=== PATIENT | female | born 1955 | race Caucasian/White ===

== ENCOUNTER 2019-04-14 15:27 | Outpatient (CLI) | payer MEDICARE, SELFPAY ==
--- NOTE | ~2019-04-14 | MR_ITS ---
EXAMINATION: MR shoulder LT wo con DATE: 04/14/2019 16:45 INDICATION: Left shoulder pain TECHNIQUE: Magnetic resonance imaging (MRI) of the left shoulder was performed without intravenous co ntrast. Sequences included axial PD-weighted FS FSE, coronal oblique PD-weighted FS FSE, coronal obli que T2-weighted FS FSE, sagittal PD-weighted FS FSE, and sagittal T1-weighted SE. COMPARISON: None. FINDINGS: Coracoacromial arch: The acromion undersurface is curved in morphology (type II). Small anterior subacromial spur at the a cromial insertion of the normal coracoacromial ligament. Mild acromioclavicular osteoarthritis. Rotator cuff: Mild tendinopathy of the supraspinatus, infraspinatus and cephalad aspect of the subscapularis tendon s without discrete tear. The teres minor tendon is normal. Normal rotator cuff muscle bulk and signal . Biceps tendon, glenoid labrum and glenohumeral cartilage: Long head of the biceps tendon is normal. Moderate glenohumeral osteoarthritis with deep chondral ulc eration with underlying degenerative subarticular changes along the inferior and posterior glenoid. T here is degenerative tearing along the posterior superior to posterior inferior glenoid labrum. Addit ional partial thickness cartilage loss with chondral surface irregularity and small to moderate-sized marginal osteophytes along the inferomedial aspect of the humeral head. Fluid: Small glenohumeral joint effusion with proportional small amount of fluid in the long head biceps ten don sheath. There is a 2 x 3 mm this osteochondral body within the long head biceps tendon sheath .No intra-articular loose osteochondral bodies. Small amount of fluid in the subacromial/subdeltoid burs a consistent with mild bursitis. Bones: Bone alignment is normal. No fracture or pathologic marrow replacing process. And additionally subart icular cystic change at the glenoid there is additional cystic change underlying the middle facet of the greater tuberosity likely secondary to rotator cuff disease. IMPRESSION: 1. Moderate glenohumeral osteoarthritis with diffuse tearing of the posterior superior to posterior i nferior glenoid labrum. 2. Mild subscapularis, supraspinatus and infraspinatus tendinopathy without discrete tear. 3. Small glenohumeral joint effusion. 4. Mild subacromial/subdeltoid bursitis. Reviewed, dictated and finalized at location A. PSYCHOLOGIST IMPRESSION: 1. Moderate glenohumeral osteoarthritis with diffuse tearing of the posterior s uperior to posterior inferior glenoid labrum. 2. Mild subscapularis, supraspinatus and infraspinatus tendinopathy without dis crete tear. 3. Small glenohumeral joint effusion. 4. Mild subacromial/subdeltoid bursitis.
== END 2019-04-14 15:28 | disposition home or self-care (01) ==
PROVIDERS: PCP Family Medicine; Visit Provider Nurse Practitioner
DX: M25.512 Pain in left shoulder (principal); M19.012 Primary osteoarthritis, left shoulder; S43.432A Superior glenoid labrum lesion of left shoulder, initial encounter; M75.82 Other shoulder lesions, left shoulder; M25.412 Effusion, left shoulder; M75.52 Bursitis of left shoulder
CPT/HCPCS: 73221

== ENCOUNTER 2019-09-26 10:01 | Outpatient (CLI) | payer MEDICARE, SELFPAY ==
--- NOTE | ~2019-09-26 | MM_ITS ---
EXAMINATION: MM screening jarett BI w rylan HISTORY: Screening mammogram TECHNIQUE: Craniocaudal and mediolateral oblique 3-D tomosynthesis images were obtained and synthetic 2-D images were generated. CAD analysis was submitted and interpreted. COMPARISON: 05/17/2017, 03/26/2016, 12/03/2012 bilateral digital screening mammogram examinations BREAST PARENCHYMAL COMPOSITION: The breasts are almost entirely fatty. FINDINGS: There is no evidence of suspicious mass, calcification, or architectural distortion to sugg est malignancy in either breast. There has been no suspicious interval change. IMPRESSION: 1. No mammographic evidence of malignancy. 2. Recommend routine screening mammography in one year. BI-RADS Category 1: Negative Reviewed, dictated and finalized at location A.
== END 2019-09-26 10:02 | disposition home or self-care (01) ==
PROVIDERS: Visit Provider Nurse Practitioner
DX: Z12.31 Encounter for screening mammogram for malignant neoplasm of breast (principal)
CPT/HCPCS: 77063; 77067

== ENCOUNTER 2021-08-29 14:29 | Outpatient (CLI) | payer MEDICARE, SELFPAY ==
--- NOTE | ~2021-08-29 | MM_ITS ---
EXAMINATION: MM screening jarett BI w rylan HISTORY: Screening TECHNIQUE: Craniocaudal and mediolateral oblique 3-D tomosynthesis images were obtained and synthetic 2-D images were generated. CAD analysis was submitted and interpreted. COMPARISON: Comparison to multiple prior studies sequentially, with oldest reviewed study dated 09/18. BREAST PARENCHYMAL COMPOSITION: There are scattered areas of fibroglandular density. FINDINGS: There is no evidence of suspicious mass, calcification, or architectural distortion to sugg est malignancy in either breast. There has been no suspicious interval change. IMPRESSION: 1. No mammographic evidence of malignancy. 2. Recommend routine screening mammography in one year. BI-RADS Category 1: Negative Reviewed, dictated and finalized at location A.
--- NOTE | ~2021-08-29 | DEXA_ITS ---
Bone Density Report Name: OLIVIA MI Age: 66 Sex: Female Ethnicity: White Date of : 1955 Indication: postmenopausal; screening for osteoporosis; height loss; Referring Provider: ALLY, VAISHALI Study: Bone densitometry was performed. Exam Date: August 29, 2021 Accession number: [id number] Bone Density: Region BMD T-score Z-score Classification AP Spine(L1-L4) 1.017 -0.3 1.7 Normal Femoral Neck (Left) 0.762 -0.8 0.9 Normal Total Hip (Left) 1.028 0.7 2.1 Normal Femoral Neck (Right) 0.895 0.4 2.1 Normal Total Hip (Right) 0.958 0.1 1.5 Normal Total Hip Mean 0.993 0.4 1.8 Normal World Health Organization criteria for BMD impression classify patients as: Normal (T-score at or above -1.0), Osteopenia (T-score between -1.0 and -2.5), or Osteoporosis (T-score at or below -2.5). 10-year Fracture Risk: FRAX not reported because: All T-scores for Spine Total, Hip Total, Femoral Neck at or above -1.0 Clinical Information Provided by Patient: Has used the following medications: Vitamin D Patient maximum height was 66 Menopause Age: 37 No regular weight bearing exercise Drinks caffeinated beverages Onset of menses at age 11 Number of children 1 Impression: The patient has normal bone mass. Discussion: BONE DENSITY IS ABOVE THE MINIMUM DESIRABLE LEVEL AT ALL SKELETAL SITES TESTED. This patient?s bone mineral density is above the minimum desirable level (T-score -1.0 or better) at all sites measured. The patient should follow a healthful lifestyle (good nutrition with adequate calcium and vitamin D, and appropriate weight-bearing exercise). Follow-Up: Consider repeating this study in 5 years or sooner if there is some new clinical indication. Reported by: LILIANE on 08/29/2021 3:04:00 PM. Reviewed, dictated and finalized at location AValeria SANON
== END 2021-08-29 14:30 | disposition home or self-care (01) ==
LOC: ANHIMG 14:31
PROVIDERS: PCP Family Medicine; Visit Provider Nurse Practitioner
DX: Z12.31 Encounter for screening mammogram for malignant neoplasm of breast (principal); Z78.0 Asymptomatic menopausal state
CPT/HCPCS: 77063; 77067; 77080

== ENCOUNTER 2022-11-26 14:52 | Outpatient (CLI) | payer MEDICARE, SELFPAY ==
--- NOTE | ~2022-11-26 | MM_ITS ---
EXAMINATION: MM screening jarett BI w rylan HISTORY: Screening mammogram TECHNIQUE: Craniocaudal and mediolateral oblique 3-D tomosynthesis images were obtained and synthetic 2-D images were generated. CAD analysis was submitted and interpreted. COMPARISON: 08/29/2021, 09/26/2019, 05/07/2017 bilateral screening mammogram examinations BREAST PARENCHYMAL COMPOSITION: The breasts are almost entirely fatty. FINDINGS: Stable small focal asymmetry in the posterior upper outer right breast, not significantly c hanged since 05/03/2017, consistent with benign process, likely minimal residual asymmetric fibroglandu lar stroma.. There is no evidence of suspicious mass, calcification, or architectural distortion to s uggest malignancy in either breast. There has been no suspicious interval change. IMPRESSION: 1. No mammographic evidence of malignancy. 2. Recommend routine screening mammography in one year. BI-RADS Category 2: Benign finding(s). Reviewed, dictated and finalized at location A.
== END 2022-11-26 14:53 | disposition home or self-care (01) ==
PROVIDERS: Visit Provider Obstetrics & Gynecology Gynecology
DX: Z12.31 Encounter for screening mammogram for malignant neoplasm of breast (principal)
CPT/HCPCS: 77063; 77067

== ENCOUNTER 2023-12-31 11:58 | Emergency (ER) | payer MEDICARE, SELFPAY ==
[2023-12-31] VITALS (13 sets, daily range): BP systolic 91–129; BP diastolic 62–92; PULSE 61–81; RESP 10–16; TEMP 36.3–36.6; O2SAT 96–99
--- NOTE | ~2023-12-31 | XR_ITS ---
EXAMINATION: XR chest 2V DATE: 12/31/2023 13:42 INDICATION: Chest pain. Dizziness. TECHNIQUE: Frontal and lateral views of the chest were obtained. COMPARISON: None. FINDINGS: There is no pneumonia, pleural effusion, or pneumothorax. The heart size is normal. IMPRESSION: 1. No acute cardiopulmonary disease. Reviewed, dictated and finalized at location B.
--- NOTE | 2023-12-31 12:04 | ECG_ITS ---
Test Date: 2023-12-31 12:06:37 Measurements Intervals [place] Rate: 81 P: 30 WV: 145 QRS: 2 QRSD: 89 T: 62 QT: 358 QTc: 416 Interpretive Statements SINUS RHYTHM NONSPECIFIC ST-T WAVE ABNORMALITY- HIGH LATERAL LEADS BORDERLINE ECG No previous ECG available for comparison Electronically Signed On 12-31-2023 12:22:54 CDT by Brandin Mendez D.O.
--- NOTE | 2023-12-31 12:44 | ED.ARRPALP ---
HPI - Arrhythmia/Palpitations General Chief Complaint: Arrhythmia/Palpitations <Marta Lomeli PA-C - Last Filed: 12/31/23 18:24> Stated Complaint: heart palpatation <Marta Lomeli PA-C - Last Filed: 12/31/23 18:24> Time Seen by Provider: 12/31/23 12:44 <Marta Lomeli PA-C - Last Filed: 12/31/23 18:24> Focused HPI: This is a 68 year old female that presents to the ER for tightness in her chest. Reports she feels like her heart is racing. Her watch alerted her that her heart rate was 120. Reports some shortness of breath. Reports chest pressure. Reports feeling lightheaded. No previous history of heart problems. Denies lower extremity edema GENERAL: Well-appearing, well-nourished, and in no acute distress. HEAD: Normocephalic, atraumatic. CHEST: Clear to auscultation. ?No respiratory distress. HEART: Regular rate and rhythm.? NEURO: ?Alert and oriented x3. Patient screened in triage and initial orders placed.? ?Additional care and disposition to be based upon?diagnostic testing and treatment. <Marta Lomeli PA-C - Last Filed: 12/31/23 18:24> History of Present Illness HPI narrative: Concur with the above with the following additions/corrections: Has had palpitations of 2 days duration, starting to increase in intensity and frequency today but improved at the time of exam. No cough, hemoptysis, fever. She describes some chest pain but more like a pressure. She was short of breath this morning as well as dizzy. Occasionally she will have vision changes with this with near syncope. This has happened before once in awhile in the last 3 months. Her watch read 120bpm including over the last 2 days. She denies any underlying cardiac or respiratory history. She had a work up with a programming equipment operator whom she saw once approximately 3 years ago that was reportedly normal though she does not recall wearing a Holter/event monitory. She does not get diaphoretic during episodes. Was nauseated this morning but not now. No vomiting. The pressure is described as constant. The palpitation episodes last approximately 30 seconds and then are gone and then seem to come on again. Patient denies a history of hypertension; she states it is listed in her chart but she doesn't know how because she has never been told this is a diagnosis and has not been on antihypertensives (removed by myself for this reason). History of hyperlipidemia. Non smoker. No history of DM, NH, TIA/CVA. Her father required cardiac surgery <65yo but she denies it being due to a heart attack. <Christina Doan MD - Last Filed: 01/01/24 22:50> Related Data Home Medications: Home Medications Medication Instructions Recorded Confirmed fluticasone propionate 50 1 spray intranasal DAILY 01/13/19 09/02/21 mcg/actuation nasal spray,suspension (Flonase Allergy Relief) sertraline 100 mg tablet 100 mg PO DAILY 01/13/19 09/02/21 <Marta Lomeli PA-C - Last Filed: 12/31/23 18:24> Allergies/Adverse Reactions: Allergies Allergy/AdvReac Type Severity Reaction Status Date / Time Sulfa (Sulfonamide Allergy Mild hives, Verified 12/31/23 12:53 Antibiotics) rash <Marta Lomeli PA-C - Last Filed: 12/31/23 18:24> Review of Systems Review of Systems: CONSTITUTIONAL: Denies fever CARDIOVASCULAR: Reports chest pain, palpitations RESPIRATORY: Reports dyspnea. <Marat Lomeli PA-C - Last Filed: 12/31/23 18:24> All systems reviewed & are unremarkable except as noted in HPI and below <Marta Lomeli PA-C - Last Filed: 12/31/23 18:24> FOR[facility]LY [facility] Past Medical History Medical History: Medical History (Updated 01/01/24 @ 00:01 by Background Daemon) Acute bilateral thoracic back pain Acute UTI Anxiety BMI greater than 40 Digital mucous cyst of toe of left foot Elevated parathyroid hormone Hammer toe of left foot Hyperlipidemia Incontinence in female Left knee DJD Major depressive disorder, single episode, unspecified Obesity, unspecified (01/02/16) Osteoarthritis of both knees Other specified diabetes mellitus without complications Prediabetes Right knee DJD Vitamin D deficiency, unspecified <Marta Lomeli PA-C - Last Filed: 12/31/23 18:24> Surgical History Surgical History: Surgical History Status post bariatric surgery <Marta Lomeli PA-C - Last Filed: 12/31/23 18:24> Family History Family History: Family History Father Carcinoma of colon Family history of pancreatic disease Family history of thoracic aortic aneurysm Status post cardiac surgery, Onset Age: 65 not due to NH Mother Family history of lymphoma Family history of malignant neoplasm of breast in first degree relative Other Family history of arthritis Family history of cardiovascular disease Family history of malignant neoplasm Family history of tuberculosis <Marta Lomeli PA-C - Last Filed: 12/31/23 18:24> Social History Social History: Social History Smoking status: Never smoker Alcohol intake: current <Marta Lomeli PA-C - Last Filed: 12/31/23 18:24> Exam Narrative: GENERAL: Well-appearing, well-nourished, and in no acute distress. HEAD: Normocephalic, atraumatic. EYES: Non injected, non icteric ENT: Nares clear, no rhinorrhea or epistaxis. NECK: Supple. CHEST: Speaking in full sentences. No respiratory distress. HEART: Regular rate and rhythm. Cora S1/S2 without appreciable murmur. Heart beat on auscultation matches pulse in radial artery. ABDOMEN: Soft, nondistended. EXTREMITIES: Normal range of motion. No lower extremity edema. SKIN: Warm, dry, no rash. NEURO: No focal deficits. Alert and oriented x3. PSYCH: Normal mood and affect. <Christina Doan MD - Last Filed: 01/01/24 22:50> Course Vital Signs Vital signs: Vital Signs Temperature 97.3 F L 12/31/23 12:10 Pulse Rate 81 12/31/23 12:10 Respiratory Rate 14 12/31/23 12:10 Blood Pressure 91/62 L 12/31/23 12:10 Pulse Oximetry 97 12/31/23 12:10 Oxygen Delivery Room Air 12/31/23 12:10 Temperature 97.8 F 12/31/23 16:33 Pulse Rate 62 12/31/23 17:35 Respiratory Rate 14 12/31/23 17:35 Blood Pressure 122/76 12/31/23 17:35 Pulse Oximetry 98 12/31/23 17:35 Oxygen Delivery Room Air 12/31/23 13:34 <Marta Lomeli PA-C - Last Filed: 12/31/23 18:24> Vital Signs Temperature 97.3 F L 12/31/23 12:10 Pulse Rate 81 12/31/23 12:10 Respiratory Rate 14 12/31/23 12:10 Blood Pressure 91/62 L 12/31/23 12:10 Pulse Oximetry 97 12/31/23 12:10 Oxygen Delivery Room Air 12/31/23 12:10 Temperature 97.8 F 12/31/23 16:33 Pulse Rate 62 12/31/23 17:35 Respiratory Rate 14 12/31/23 17:35 Blood Pressure 122/76 12/31/23 17:35 Pulse Oximetry 98 12/31/23 17:35 Oxygen Delivery Room Air 12/31/23 13:34 <Christina Doan MD - Last Filed: 01/01/24 22:50> MDM - Arrhythmia/Palpitations MDM Narrative Medical decision making narrative: Patient presents with report of palpitations, increasing in frequency and intensity over the past 2 days. Also associated with chest pain/pressure. In the ED she is afebrile with VS notable initially for hypotension but then improved and sustained without intervention. HEART SCORE History 2 highly suspicious 1 moderately suspicious 0 slightly suspicious History score [address] depression/elevation not due to LBBB, LVH, or digoxin [address] depression but LBBB, LVH, nonspecific repolarization changes 0 normal ECG score 0 Age 2 >/= 65 1 45-64 0 <45 Age score 2 Risk factors (HTN, hypercholesterolemia, DM, obesity with BMI >30, current smoker or cessation </=3mo), positive fam hx with parent or sibling with CVD before age 65, atherosclerotic disease (prior NH, PCI/CABG, CVA/TIA, or peripheral arterial disease) 2 >/= 3 risk factors or history of atherosclerotic dz 1 - 1-2 risk factors 0 no known risk factors Risk factor score 1 (cholesterol, obesity) Initial Troponin 2 >3 times normal limit 1 1-3 times normal limit 0 less than or equal to normal limit Troponin score 0 Total HEART Score 3. 2nd troponin negative. D-dimer within normal limits. Cardiac monitoring is assessed multiple times on telemetry with no evidence of obvious aberrant beats, PVCs (especially not in sustained fashion), Vtach, etc. WIll be unable to arrange event monitor today given Wednesday after 5pm. Patient otherwise stable for discharged. Provided information on outpatient follow up and given ED return precautions. <Christina Doan MD - Last Filed: 01/01/24 22:50> Differential Diagnosis Differential diagnosis: Likely palpitations, anxiety, sinus tachycardia, artial fibrillation, artial flutter, ventricular premature beats, supraventricular tachycardia, ventricular tachycardia, WPW and other (electrolyte abnormalities, pulmonary embolism; ACS) <Christina Doan MD - Last Filed: 01/01/24 22:50> Lab Data Attestation: I reviewed the patient's lab results. <Christina Doan MD - Last Filed: 01/01/24 22:50> Lab results narrative: Hyperglycemia without anion gap acidosis <Christina Doan MD - Last Filed: 01/01/24 22:50> Result diagrams: 12/31/23 12:57 12/31/23 12:57 <Marta Lomeli PA-C - Last Filed: 12/31/23 18:24> Labs: Lab Results 12/31/23 12/31/23 Range/Units 12:57 16:00 WBC 8.1 (4.5-10.0) K/mm3 RBC 4.70 (4.2-5.4) M/mm3 Hgb 14.4 (12.0-15.0) g/dL Hct 44.0 (37.0-47.0) % MCV 93.6 (80-100) fl MCH 30.6 (26-34) pg MCHC 32.7 (32-36) g/dl RDW 12.4 (11.5-14.5) % Plt Count 226 (150-375) k/mm3 MPV 11.4 H (7.4-10.4) fl Immature Gran % (Auto) 0.2 (0-0.5) % Neut % (Auto) 60.1 (45.5-73.1) % Lymph % (Auto) 31.8 (18.3-44.2) % [place] % (Auto) 5.4 (2.6-8.5) % Eos % (Auto) 1.5 (0-4.4) % Baso % (Auto) 1.0 (0.2-1.2) % Lymph # (Auto) 2.58 (0.9-3.2) K/mm3 [place] # (Auto) 0.4 (0.1-0.6) K/mm3 Eos # (Auto) 0.1 (0-0.3) K/mm3 Baso # (Auto) 0.1 (0.0-0.1) K/mm3 Abs Immat Gran (auto) 0.02 (0.00-0.031) K/mm3 Absolute Neuts (auto) 4.9 (1.3-6.7) K/mm3 Absolute Nucleated RBC 0.000 (0.0-0.012) K/mm3 Nucleated RBC % 0.0 (0.0-0.2) % PT 13.9 (11.1-14.7) Seconds INR 1.0 APTT 29.2 (22.3-36.8) Seconds D-Dimer 0.31 (<0.48) ug/mL Sodium 140 (137-145) mmol/L Potassium 3.8 (3.4-5.0) mmol/L Chloride 107 (98-107) mmol/L Carbon Dioxide 23 (22-30) mmol/L Anion Gap 10 (4-12) mmol/L BUN 22 H (7-17) mg/dL Creatinine 0.90 (0.7-1.0) mg/dL Estim Creat Clear Calc 66 ml/min Estimated GFR > 60 (59 - ) Glucose 184 H (65-110) mg/dL Calcium 9.3 (8.4-10.2) mg/dL Magnesium 2.2 (1.6-2.3) mg/dL Total Bilirubin 0.4 (0.2-1.3) mg/dL AST 20 (14-36) U/L ALT 14 (6-35) U/L Alkaline Phosphatase 65 (38-126) U/L Troponin I < 0.012 < 0.012 (0.000-0.034) ng/mL Total Protein 7.0 (6.3-8.2) g/dL Albumin 4.1 (3.5-5.1) g/dL Lipase 78 (23-300) U/L <Marta Lomeli PA-C - Last Filed: 12/31/23 18:24> Lab Results 12/31/23 12/31/23 Range/Units 12:57 16:00 WBC 8.1 (4.5-10.0) K/mm3 RBC 4.70 (4.2-5.4) M/mm3 Hgb 14.4 (12.0-15.0) g/dL Hct 44.0 (37.0-47.0) % MCV 93.6 (80-100) fl MCH 30.6 (26-34) pg MCHC 32.7 (32-36) g/dl RDW 12.4 (11.5-14.5) % Plt Count 226 (150-375) k/mm3 MPV 11.4 H (7.4-10.4) fl Immature Gran % (Auto) 0.2 (0-0.5) % Neut % (Auto) 60.1 (45.5-73.1) % Lymph % (Auto) 31.8 (18.3-44.2) % [place] % (Auto) 5.4 (2.6-8.5) % Eos % (Auto) 1.5 (0-4.4) % Baso % (Auto) 1.0 (0.2-1.2) % Lymph # (Auto) 2.58 (0.9-3.2) K/mm3 [place] # (Auto) 0.4 (0.1-0.6) K/mm3 Eos # (Auto) 0.1 (0-0.3) K/mm3 Baso # (Auto) 0.1 (0.0-0.1) K/mm3 Abs Immat Gran (auto) 0.02 (0.00-0.031) K/mm3 Absolute Neuts (auto) 4.9 (1.3-6.7) K/mm3 Absolute Nucleated RBC 0.000 (0.0-0.012) K/mm3 Nucleated RBC % 0.0 (0.0-0.2) % PT 13.9 (11.1-14.7) Seconds INR 1.0 APTT 29.2 (22.3-36.8) Seconds D-Dimer 0.31 (<0.48) ug/mL Sodium 140 (137-145) mmol/L Potassium 3.8 (3.4-5.0) mmol/L Chloride 107 (98-107) mmol/L Carbon Dioxide 23 (22-30) mmol/L Anion Gap 10 (4-12) mmol/L BUN 22 H (7-17) mg/dL Creatinine 0.90 (0.7-1.0) mg/dL Estim Creat Clear Calc 66 ml/min Estimated GFR > 60 (59 - ) Glucose 184 H (65-110) mg/dL Calcium 9.3 (8.4-10.2) mg/dL Magnesium 2.2 (1.6-2.3) mg/dL Total Bilirubin 0.4 (0.2-1.3) mg/dL AST 20 (14-36) U/L ALT 14 (6-35) U/L Alkaline Phosphatase 65 (38-126) U/L Troponin I < 0.012 < 0.012 (0.000-0.034) ng/mL Total Protein 7.0 (6.3-8.2) g/dL Albumin 4.1 (3.5-5.1) g/dL Lipase 78 (23-300) U/L <Christina Doan MD - Last Filed: 01/01/24 22:50> Imaging Data Radiologist's impression: ITS Impressions Chest X-Ray 12/31/23 13:46 IMPRESSION: 1. No acute cardiopulmonary disease. <Marta Lomeli PA-C - Last Filed: 12/31/23 18:24> ECG Data EKG #1: Attestation: I personally reviewed and interpreted this ECG as follows: <Christina Doan MD - Last Filed: 01/01/24 22:50> ECG completion date: 12/31/23 <Christina Doan MD - Last Filed: 01/01/24 22:50> ECG completion time: 12:06 <Christina Doan MD - Last Filed: 01/01/24 22:50> Interpretation: Normal sinus rhythm at a rate of 81 beats per minute. NV interval 145. QRS 89. QT/QTC 358/398. Good R-wave progression across the precordial leads. No marked T-wave inversions. <Christina Doan MD - Last Filed: 01/01/24 22:50> Critical Care Time Critical Care Time Critical Care Time: No <Marta Lomeli PA-C - Last Filed: 12/31/23 18:24> Discharge Plan Discharge Clinical Impression: Heart palpitations, Chest pressure, Hyperglycemia <Marta Lomeli PA-C - Last Filed: 12/31/23 18:24> Patient Disposition: Home, Self-Care <Marta Lomeli PA-C - Last Filed: 12/31/23 18:24> Condition: Stable <Marta Lomeli PA-C - Last Filed: 12/31/23 18:24> Instructions: Antibiotic Form, Chest Pain (DC), Heart Palpitations (ED), Nondiabetic Hyperglycemia (ED) <Marta Lomeli PA-C - Last Filed: 12/31/23 18:24> Additional Instructions: Your workup shows no clear cause of your symptoms. because you are otherwise low risk, the recommendation is for outpatient workup. This can be done with the programming equipment operator you previously saw or, if they are no longer available, the name of a programming equipment operator is listed below. they may recommend that you wear an event monitor. Return to the ED if new/worsening symptoms. <Marta Lomeli PA-C - Last Filed: 12/31/23 18:24> Prescriptions: No Action lidocaine 4 % adhesive patch,medicated 1 patch TOPICAL DAILY PRN (Reason: pain) Qty: 10 5RF Rx Instructions: may leave on for up to 12 hrs diclofenac sodium 1 % gel 2 gm TOPICAL QID PRN (Reason: pain) Qty: 100 1RF Rx Instructions: Apply to left shoulder. fluticasone propionate [Flonase Allergy Relief] 50 mcg/actuation spray,suspension 1 spray NASAL DAILY sertraline 100 mg tablet 100 mg PO DAILY ergocalciferol (vitamin D2) 50,000 unit capsule 50,000 unit PO WEEKLY Qty: 30 0RF ondansetron 4 mg tablet,disintegrating 4 mg PO Q8H PRN (Reason: nausea and vomiting) Qty: 30 1RF Rx Instructions: Take one tablet every 8 hours or as needed. trazodone 50 mg tablet 50 mg PO QPM PRN (Reason: insomnia) Qty: 60 1RF Rx Instructions: Take one to two tablets at bedtime. atorvastatin 20 mg tablet See Rx Instructions .ROUTE .COMPLEX Qty: 90 1RF Dose Instruction: TAKE 1 TABLET BY MOUTH EVERY DAY Rx Instructions: TAKE 1 TABLET BY MOUTH EVERY DAY ropinirole 1 mg tablet See Rx Instructions .ROUTE .COMPLEX Qty: 90 0RF Dose Instruction: TAKE 1 TABLET BY MOUTH EVERY DAY NIGHTLY Rx Instructions: TAKE 1 TABLET BY MOUTH EVERY DAY NIGHTLY <Marta Lomeli PA-C - Last Filed: 12/31/23 18:24> Follow-up/Referrals: Brandin Mendez DO [Physician] - (cardiology) PHYSICIAN NOT ON STAFF,NONSTAFF [Non-Staff] - <Marta Lomeli PA-C - Last Filed: 12/31/23 18:24> Stand Alone Forms: Work/School Release IP <Marta Lomeli PA-C - Last Filed: 12/31/23 18:24> Time of Disposition: 17:19 <Marta Lomeli PA-C - Last Filed: 12/31/23 18:24> 17:19 <Christina Doan MD - Last Filed: 01/01/24 22:50>
[2023-12-31] MEDS: ASPIRIN 81 MG CHEWABLE TABLET 324 MG PO (12:54)
[2023-12-31 13:04] LABS: Basophils Absolute Auto 0.1 K/mm3 (0.0-0.1); Eosinophils Absolute Auto 0.1 K/mm3 (0-0.3); Eosinophils Percent Auto 1.5 % (0-4.4); Hemoglobin 14.4 g/dL (12.0-15.0); Immature Granulocyte Absolute 0.02 K/mm3 (0.00-0.031); Immature Granulocyte Percent A 0.2 % (0-0.5); Lymphocytes Absolute Auto 2.58 K/mm3 (0.9-3.2); Lymphocytes Percent Auto 31.8 % (18.3-44.2); Mean Corpuscular HGB Conc 32.7 g/dl (32-36); Mean Corpuscular Hemoglobin 30.6 pg (26-34); Mean Corpuscular Volume 93.6 fl (80-100); Mean Platelet Volume 11.4 fl (7.4-10.4); Monocytes Absolute Auto 0.4 K/mm3 (0.1-0.6); Monocytes Percent Auto 5.4 % (2.6-8.5); Neutrophils Absolute Auto 4.9 K/mm3 (1.3-6.7); Neutrophils Percent Auto 60.1 % (45.5-73.1); Platelet Count Result 226 k/mm3 (150-375); Red Cell Distribution Width 12.4 % (11.5-14.5); White Blood Count 8.1 K/mm3 (4.5-10.0)
[2023-12-31 13:16] LABS: Alanine Aminotransferase 14 U/L (6-35); Albumin Level 4.1 g/dL (3.5-5.1); Alkaline Phosphatase 65 U/L (38-126); Anion Gap 10 mmol/L (4-12); Aspartate Amino Transferase 20 U/L (14-36); Bilirubin,Total 0.4 mg/dL (0.2-1.3); Blood Urea Nitrogen 22 mg/dL (7-17); Calcium 9.3 mg/dL (8.4-10.2); Carbon Dioxide 23 mmol/L (22-30); Chloride 107 mmol/L (98-107); Estimated CRCL calculation 66 ml/min; Estimated Glomerular Filt Rate > 60; Glucose 184 mg/dL (65-110); Lipase 78 U/L (23-300); Potassium 3.8 mmol/L (3.4-5.0); Sodium 140 mmol/L (137-145)
[2023-12-31 13:24] LABS: Partial Thromboplastin Time 29.2 Seconds (22.3-36.8); Prothrombin Time 13.9 Seconds (11.1-14.7)
[2023-12-31 13:27] LABS: Troponin I < 0.012 ng/mL (0.000-0.034)
[2023-12-31] MEDS: ACETAMINOPHEN 500 MG TABLET 1000 MG PO (16:32)
[2023-12-31 16:37] LABS: D Dimer 0.31 ug/mL (<0.48)
[2023-12-31 16:38] LABS: Troponin I < 0.012 ng/mL (0.000-0.034)
[2023-12-31 16:53] LABS: Magnesium 2.2 mg/dL (1.6-2.3)
[2023-12-31] MEDS: KETOROLAC 15 MG/ML VIAL (*BKC) IV PUSH (17:34)
== END 2023-12-31 18:00 | disposition home or self-care (01) ==
PROVIDERS: Physician Assistant; Emergency Provider Student in an Organized Health Care Education/Training Program
DX: R00.2 Palpitations (principal); R07.89 Other chest pain; R73.9 Hyperglycemia, unspecified; E78.5 Hyperlipidemia, unspecified; F41.8 Other specified anxiety disorders; E66.9 Obesity, unspecified; Z68.42 Body mass index [BMI] 45.0-49.9, adult; E55.9 Vitamin D deficiency, unspecified
CPT/HCPCS: 36415; 71046; 80053; 83690; 83735; 84484; 85025; 85380; 85610; 85730; 93005; 99284; A9270; J1885

== ENCOUNTER 2024-10-25 11:29 | Outpatient (CLI) | payer MEDICARE, SELFPAY ==
--- NOTE | ~2024-10-25 | MM_ITS ---
EXAMINATION: MM screening jarett BI w rylan HISTORY: Screening TECHNIQUE: Craniocaudal and mediolateral oblique 3-D tomosynthesis images were obtained and synthetic 2-D images were generated. CAD analysis was submitted and interpreted. COMPARISON: 03/26/2016 BREAST PARENCHYMAL COMPOSITION: The breasts are almost entirely fatty. FINDINGS: There is no evidence of suspicious mass, calcification, or architectural distortion to suggest malignancy in either breast. IMPRESSION: 1. No mammographic evidence of malignancy. 2. Recommend routine screening mammography in one year. BI-RADS Category 1: Negative Reviewed, dictated and finalized at location B.
--- OUTSIDE RECORDS SUMMARY | 2024-10-25 11:54 | XMS_ITS | Clinical Summary ---
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 255 g 0 7 Active lisinopril (PRINIVIL, ZESTRIL) 10 MG Tablet Take 1 Tab by mouth daily. 3 7 Active diclofenac (VOLTAREN) 75 MG Tablet Delayed Response Take 1 Tab by mouth 2 times daily. 5 7 Active sertraline (ZOLOFT) 50 MG Tablet Take 1 Tab by mouth daily. 5 7 Active atorvastatin (LIPITOR) 20 MG Tablet Take 1 Tab by mouth daily. 5 7 Active metFORMIN (GLUCOPHAGE) 500 MG Tablet Take 1 Tab by mouth 2 times daily. 4 7 Active oxybutynin (DITROPAN) 5 MG Tablet Take 2 Tabs by mouth 2 times daily. 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 Gender Identity Not on file Sexual Orientation Not on file Plan of Treatment Health Maintenance Due Date Last Done Comments Hepatitis C Virus (HCV) Screening 1955 TdaP Immunization 1955 Cologuard 1998 Immunochemical Fecal Occult Blood 1998 Pneumococcal Immunization (5 0+ years) (1 of 1 - PCV) 2003 Zoster Immunization (1 of 2) 2003 Colonoscopy 07/23/2021 07/23/2016 Colorectal Cancer Screening 07/23/2021 SARS-COV-2 Immunization (1 - 2023- season) 2023 Influenza Immunization (#1) 2024 Respiratory Syncytial Virus (RSV) Immunization (Adult) (1 - 1-dose 75+ series) 2028 Hepatitis B Immunization Aged Out No longer eligible based on patient's age to complete this topic Human Papillomavirus (HPV) Immunization Aged Out No longer eligible b ased on patient's age to complete this topic Meningococcal Immunization (ACWY) Aged Out No longer eligible based on patient's age to complete this topic Rotavirus Immunization Aged Out No lo nger eligible based on patient's age to complete this topic Procedures Procedure Name Priority Date/Time Associated Diagnosis Comments COLONOSCOPY Routine 07/23/2016 from Last 3 Months or Most Recently Relevant to Health Maintenance Results * COLONOSCOPY (07/23/2016) Guanakito Hurtado MD PROCEDURE/MINOR SURGICAL OR DERABLES Final Result from Last 3 Months or Most Recently Relevant to Health Maintenance Insurance MEDICAID [employer] Care Teams Food 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
--- OUTSIDE RECORDS SUMMARY | 2024-10-25 11:54 | XMS_ITS | Clinical Summary ---
Author Organization [facility] Address [address] [place] [address] Care Team Providers Care Ethnographic Materials Conservator Name Role Phone CyrilHelder lara Primary Care Provider [phone] Source Comments [facility]non-owned Affiliates and Associated Physician Practices is amultiple site organization consisting of ambulatory clinics and hospital sitesin [place], [place], [place] and [place]. This disclosure is being madepursuant to the Care Everywhere program and may not contain all information available regarding this patient. Last updated 17.[facility] Allergies Active Allergy Reactions Criticality Noted Date Comments Sulfa Drugs Rash Medium 08/19/2016 Medications * Be aware that medications may not be up to date on this document. Alwaysverify current medications with the patient. sertraline (ZOLOFT) 100 MG tablet Take 100 mg by mouth once daily Active Blood Glucose Monitoring Suppl (FREESTYLE LITE) MICHAEL U UTD 0 08/13/2017 Active Multiple Vitamins-Minera ls (CENTRUM SILVER 50+WOMEN PO) 2 tablets twice a day Active atorvastatin (LIPITOR) 10 MG tablet Take 20 mg by mouth at bedtime Active LORazepam (ATIVAN) 0.5 MG tablet Take 0.5 mg by mouth every 8 hours as needed for Anxiety Active Turmeric 500 MG Take 500 mg by mouth once daily Active traZODone (DESYREL) 50 MG tablet Take 50 mg by mouth 2 times daily Active rOPINIRole (REQUIP) 1 MG tablet Take 1 mg by mouth at bedtime Active diclofenac sodium (VOLTAREN) 1 % gel Apply 2 g to affected area as needed Active tolterodine ER 24hr (DETROL LA) 4 MG capsule Take 1 capsule by mouth once daily Generic please for cost. 30 capsule 3 02/09/2020 Active Active Problems Problem Noted Date Diagnosed Date Anxiety 12/04/2019 Arthritis 12/04/2019 Diabetes mellitus 12/04/2019 Hypertension 12/04/2019 Sleep apnea 12/04/2019 Hyperlipidemia 08/15/2019 Other insomnia 08/15/2019 Primary osteoarthritis of left shoulder 08/15/19 Recurrent major depressive disorder, in full rem ission 08/15/2019 Restless legs syndrome 08/15/2019 Type 2 diabetes mellitus wit hout complication, without long-term current use of insulin 08/15/2019 Urinary incontinence without sensory awareness 0 08/15/2019 Vitamin D deficiency 05/18/2018 S/P laparoscopic sleeve gastrectomy 05/18/2018 Morbid obesity 08/30/2017 Immunizations Immunization Administration Dates Next Due INFLUENZA VACCINE 11/08/2019,01/06/2016 INFLUENZA VACCINE, ADJUVANTE D, QUADR. (FLUAD QUADRIVALENT; 65Y+) (AIIV4) 11/08/2019 INFLUENZA VACCINE, HIGH-DOSE , QUADR. (FLUZONE HIGH-DOSE QUADRIVALENT; 65Y+), 0.7 ML (HD-IIV4) 11/22/2018 Pneumococcal Pcv13 Conj 08/15/2019,11/22/2018 TDAP (7yrs+) 12/07/2019 ZOSTER VACCINE, LIVE 01/06/2016 Family History Medical History Relation Name Comments Cancer - Colon Father Cancer - Lung Father Other - Cardiac Father heart dieses e Cancer - Breast Mother Cancer - Other Paternal Grandfather brain Relation Name Status Comments Father Alive Maternal Grandfather Maternal Grandmother Mother Paternal Grandfather Paternal Grandmother Alive Sister Social History Tobacco Use Types Packs/Day Years Used Date Smoking Tobacco: Never Smokeless Tobacco: Never Alcohol Use Standard Drinks/Week Comments Yes 1 (1 standard drink = 0.6 oz pur e alcohol) Comments No Sex and Gender Information Value Date Recorded Sex Assigned at Not on file Legal Sex Female 11:20 AM CDT Gender Identity Not on file Sexual Orientation Not on file Last Filed Vital Signs Vital Sign Reading Time Taken Comments Blood Pressure 128/90 02/07/2020 4:33 PM 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 Pulse 78 02/07/2020 4:33 PM 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 Temperature 35.8 C (96.5 F) 02/07/2020 4:33 PM 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 Respiratory Rate 18 05/04/2018 10:37 AM 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 Oxygen Saturation 96% 05/04/2018 10:37 AM 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 Inhaled Oxygen Concentration - - Weight 129.7 kg (286 lb) 02/07/2020 4:33 PM 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 Height 162.6 cm (5' 4) 02/07/2020 4:33 PM 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 Body Mass Index 49.09 02/07/2020 4:33 PM 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 Plan of Treatment Health Maintenance Due Date Last Done Comments BONE DENSITY TESTING 1955 COLOGUARD (AGES 45-75) - COLON CA SCREENING 1955 COLON MONITORING 1955 COLONOSCOPY - COLON CA SCREENING 1953 CT COLONOGRAPHY - COLON CA SCREENING 1955 Colorectal Cancer Screening 1955 FIT - COLON CA SCREENING 1955 FLEX SIG - COLON CA SCREENING 1955 MAMMOGRAM 1955 HEPATITIS C SCREENING 03/30/1971 Respiratory Syncytial Virus (RSV) Vaccine Pt: or over 60 yrs (1 - Risk 60-74 years 1-dose series) 2013 ZOSTER VACCINE (2 of 3) 03/02/2016 01/06/2016 DIABETES-SERUM CREATININE 08/31/2018 08/31/2017, 04/2017 DIABETES-FOOT EXAM WITH MONOFILAMENT 12/04/2019 DIABETES-HGB A1C 12/04/2019 PNEUMOCOCCAL VACCINE 50+ (2 of 2 - PCV20 or PCV21) 08/14/2020 08/15/2019, 11/22/2018 COVID-19 VACCINE (1 - 2023- season) 2023 DEPRESSION SCREENING 03/01/2024 DIABETES - URINE PROTEIN SCREENING 03/01/2024 INFLUENZA VACCINE (#1) 2024 0, 11/08/2019, 11/22/2018, Additional history exists DTAP/TDAP/TD VACCINES (2 - Td or Tdap) 12/06/2029 12/07/2019 HEPATITIS B VACCINE Aged Out No longe r eligible based on patient's age to complete this topic HIB VACCINE Aged Out No longer eligi ble based on patient's age to complete this topic HPV VACCINE Aged Out No longer eligi ble based on patient's age to complete this topic MENINGOCOCCAL (Group B) VACCINE SHARED DECISION-MAKING Aged Out No longer eligible based on patient's age to complete this topic MENINGOCOCCAL GROUPS A/C/Y/W VACCINE Aged Out No longer eligible based on patient's age to complete this topic Medical Devices Implanted Type Area Ferry Terminal Supervisor Device Identifier Shelf Expiration Date Model / Serial / Lot Evicel Fibrin Sealant Implanted:Qty: 1 on 08/30/2017 by Carter Day MD at [facility] [place] 09/30/2018 [id number] / / Procedures Procedure Name Priority Date/Time Associated Diagnosis Comments COMPREHENSIVE METABOLIC PANEL Routine 08/31/2017 3:49 AM CDT from Last 3 Months or Most Recently Relevant to Health Maintenance Results * (ABNORMAL) COMPREHENSIVE METABOLIC PANEL (08/31/2017 3:49 AM CDT) [facility] Signature Glucose 126(H) 70 - 125 mg/dL 08/31/2017 5:30 AM [facility] Sodium 137 136 - 145 mmol/L 08/31/2017 5:30 AM [facility] Potassium 3.9 3.4 - 4.5 mmol/L 08/31/2017 5:30 AM [facility] Chloride 105 98 - 107 mmol/L 08/31/2017 5:30 AM [facility] CO2 24 22 - 29 mmol/L 08/31/2017 5:30 AM [facility] Calcium 9.2 8.4 - 10.2 mg/dL 08/31/2017 5:30 AM [facility] Anion Gap 12 10 - 20 mmol/L 08/31/2017 5:30 AM [facility] BUN 6.7(L) 9.8 - 20.1 mg/dL 08/31/2017 5:30 AM [facility] Creatinine 0.74 0.57 - 1.11 mg/dL 08/31/2017 5:30 AM [facility] eGFR by MDRD >60 >60 mL/min/1.7 3m2 08/31/2017 5:30 AM [facility] eGFR by MDRD >60 >60 mL/min/1.7 3m2 08/31/2017 5:30 AM CDT [facility] Alkaline Phosphatase 71 40 - 150 U/L 08/31/2017 5:30 AM CDT [facility] ALT 16 5 - 55 U/L 08/31/2017 5:30 AM CDT [facility] AST 20 5 - 34 U/L 08/31/2017 5:30 AM CDT [facility] Protein Total 6.8 6.4 - 8.3 gm/dL 08/31/2017 5:30 AM CDT [facility] Albumin 3.1(L) 3.5 - 5.0 gm/dL 08/31/2017 5:30 AM CDT [facility] Globulin Total 3.7 2.6 - 4.0 gm/dL 08/31/2017 5:30 AM CDT [facility] Albumin/Globulin Ratio 0.8(L) 0.9 - 1.6 08/31/2017 5:30 AM CDT [facility] Bilirubin Total 0.5 0.2 - 1.2 mg/dL 08/31/2017 5:30 AM T [facility] Blood BLOOD SPECIMEN / Unknown Lab Venipuncture / Unknown 08/31/2017 3:49 AM CDT 08/31/2017 4:47 AM CDT Carter Day MD LAB - CHEMISTRY ORDERABLES F inal Result Performing Organization Address [facility]/State/[facility] Co de Phone Number [facility] [address] from Last 3 Months or Most Recently Relevant to Health Maintenance Insurance * Guarantor: Esther Mi Account Type Relation to Patient Date of Phone Billing Address Personal/Family Self 1955 [address] [facility] [address] [place] [address] MEDICARE [facility] * Guarantor: Esther Mi Account Type Relation to Patient Date of Phone Billing Address Personal/Family Self 1955 [address] [facility] [address] [place] [address] MEDICARE [facility] MEDICAID - [place] Care Teams Ethnographic Materials Conservator Relationship Specialty Start Date End Date Helder Mark DO PCP - General Family Medicine 12/04/19
== END 2024-10-25 11:30 | disposition home or self-care (01) ==
LOC: CHSIMG 11:38
PROVIDERS: Visit Provider Obstetrics & Gynecology Gynecology
DX: Z12.31 Encounter for screening mammogram for malignant neoplasm of breast (principal)
CPT/HCPCS: 77063; 77067